=== PATIENT | male | born 1945 | race Caucasian/White ===

== ENCOUNTER 2016-11-16 20:01 | Emergency (ER) | payer MEDICARE, OTHER ==
[~2016-11-16] VITALS: Ht 177.8 cm; Wt 98.0 kg
[~2016-11-16 20:01] MED LIST: ASPIRIN 81MG TA81 MG PO; CLONIDINE0.1 MG PO; HYDROCHLOROTHIA25 M1 PO; LEVOTHYROXINE0.2 M2 PO; LISINOPRIL10 MG PO; METFORMIN HCL850 M1 PO; METOPROLOL SUCC25 M2 PO; NIFEDIPINE 10MG10 MG PO
--- NOTE | 2016-11-16 20:32 | Urgent Treatment Center Report ---
History of Present Issue Date/Time Seen by Provider 11/16/162025 Visit Reason Pt arrived:Walked Presenting Problem:C/O RASH ALL OVER STARTING TODAY. DENIES ITCHING. ALSO C/O MUSCLE ACHES AND BEING COLD. RECENTLY STARTED NEW MEDS 5 DAYS AGO. METHYLPREDNISOLONE, CLINDAMYCIN AND BACTRIM DS FOR GOUT AND A CYST ON THE NECK Location if Accident: Onset of symptoms date/time:11/16/16/ or onset unknown for:MEDICAL HX UNKNOWN Have you (or family members/close friends) recently traveled outside the [place]? N If Yes, where/when: Have you had exposure to infectious disease within the past month? TB? Other? Specify: Source patient, family Exam Limitations no limitations Comment 71-year-old male presents for rash to entire body that just developed a few hours ago, denies shortness of breath or trouble swallowing. Patient states he was started on Bactrim DS clindamycin and a Medrol Dosepak on 11/08 for an abscess to the back of his RIGHT neck. ALLERGIES Coded Allergies: No Known Allergies (11/16/16) Home Medications Active Scripts CLONIDINE HCL (Clonidine 0.1MG Tab) 0.1 MG PO TID #15 TABLET Prov: 04/10/14 Metoprolol Succinate 12.5 MG PO BID 14 Days Prov: 04/10/14 Reported Medications METFORMIN HCL (Metformin Hcl) 850 MG PO BID #180 Lisinopril 10 MG PO DAILY #30 Nifedipine (Nifedipine 10MG Capsule) 10 MG PO DAILY #30 HYDROCHLOROTHIAZIDE (Hydrochlorothiazide) 25 MG PO DAILY Levothyroxine Sodium 0.2 MG PO DAILY #30 ASPIRIN (Aspirin) 81 MG PO DAILY History Medical History General CAD? No Angina: No SC: No Hypertension? Yes Hyperlipidemia? No CHF? No DVT? No PE? No COPD? No Asthma? No Anemia? No GERD? No Gastric ulcers? No GI Bleed? No Hernia? No Thyroid Problems? No Hypothyroidism? Yes CVA? No Seizures? No Diabetes? Yes Insulin Dependent: No Insulin Pump: No Home FSBS? No Renal Insuffiency? No UTI? No Stones? No BPH? No GB Disease: No Nephritic Syndrome? No Asplenia? No Hepatitis? No Sickle Cell Disease? No Arthritis? No Migraines? No Cataracts? No Glaucoma? No MRSA? No HIV? No TB? No Anxiety? No Depression? No Cancer? No Immunization HX DT/Tetanus Unknown Surgical Hx Previous Surgery?N Social History Smoking Hx Smoker: Never Smoker Tobacco: No Alcohol Alcohol: No Review of Systems All Other Systems Reviewed and Negative Skin see HPI, rash Physical Exam Vital Signs Vital Signs Date Time Temp Pulse Resp B/P Pulse O2 O2 Flow FiO2 Ox Delivery Rate 11/16 2017 99.3 75 20 161/90 98 11/17 2003 99.3 75 20 161/90 98 - WBC >12,000 or <4,000 or 10% bands? 2 or more SIRS Criteria Met? B/P:161/90 MAP:113 Creatinine >2.0? UA output<0.5ml/kg/hr for 2 hrs? Platelet count >100,000? Lactate >2.0mmol/1? INR >1.2 or PTT > than 60 sec? Evidence of Organ Dysfunction? Provider documented clinical suspician of infection? Sepsis Criteria Count: 1 Sepsis Risk: General Appearance normal appearance, no apparent distress Eye Exam - bilateral eye normal exam, bilateral eye PERRL, bilateral eye EOMI Ear, Nose, Throat hearing grossly normal, normal ENT inspection, normal pharynx Neck normal inspection, full range of motion Respiratory Status Yes: trachea midline, chest symmetrical, non tender chest. No: respiratory distress. Lung Sounds bilateral: normal breath sounds, lungs clear. Cardiovascular normal exam, regular rate/rhythm, no peripheral edema Neurologic alert, normal exam, oriented x 3 Skin rash Medical Decision Making LABS/Meds/Orders Pt receiving controlled substance in ED? No Results/Orders Current Medication Orders Sig/Leah Start time Last Medication Dose Route Stop Time Status Admin Famotidine 20 MG ONCE ONE 11/16 2044 AC 11/16 PO 11/16 Loratadine 10 MG ONCE ONE 11/16 2044 AC 11/16 PO 11/16 Famotidine 0 .STK-MED ONE 11/16 2036 DC .ROUTE Loratadine 0 .STK-MED ONE 11/16 2036 DC PO Consult MD Physician Consult Consult/PCP besson Time Called 2038 Reason Pt. Condition Comments Spoke with Dr. Camacho regarding patient's rash he recommended Pepcid 20mg twice a day Claritin 10mg daily and Vistaril 25mg 3 times a day when necessary for itching and stop Bactrim DS but continue clindamycin and last dose of Medrol. Vistaril was not given an EDC due to patient driving Departure Departure Time of Disposition 2039 Disposition DC Home or Self Care(routine) Clinical Impression Primary Impression: Allergic reaction Qualifiers: Encounter type: initial encounter Qualified Code: T78.40XA - Allergy, unspecified, initial encounter Secondary Impressions: Allergic reaction caused by a drug Qualifiers: Encounter type: initial encounter Qualified Code: T78.40XA - Allergy, unspecified, initial encounter Condition STABLE Referrals Baljinder Grady MD (Family) Patient Instructions DI for Adverse Drug Reaction -- Allergic, DI for General Allergic Reactions Additional Instructions Follow-up with Dr. Oconnell this week Stop Bactrim DS Discharge Counseling Counseled pt/family regarding diagnosis, medications/RX, home care, follow up needs Prescriptions Current Visit Scripts Famotidine (Pepcid 20MG) 20 MG PO BID 3 Days Loratadine (Claritin 10MG) 10 MG PO DAILY 3 Days Ref 1 Hydroxyzine Pamoate (Vistaril) 25 MG PO TIDP PRN ITCHING 3 Days at 2046
[2016-11-16] MEDS ORDERED: VISTARIL25 MG PO (20:43)
[2016-11-16] MEDS ORDERED: CLARITIN 10MG T10 MG PO (20:43)
[2016-11-16] MEDS ORDERED: Pepcid20 MG PO (20:43)
[2016-11-16 20:48] VITALS: BP 161/90
== END 2016-11-16 20:49 | disposition home or self-care (01) ==
LOC: ER 20:01 → UTC 20:19 → ER 20:19 → UTC 20:49
DX: L27.0 Generalized skin eruption due to drugs and medicaments taken internally (principal); T37.0X5A Adverse effect of sulfonamides, initial encounter; Y92.9 Unspecified place or not applicable; I10 Essential (primary) hypertension; E03.9 Hypothyroidism, unspecified; E11.9 Type 2 diabetes mellitus without complications; Z79.84 Long term (current) use of oral hypoglycemic drugs; Z79.82 Long term (current) use of aspirin; Z79.899 Other long term (current) drug therapy